=== PATIENT | female | born 1970 | race Hispanic/Latino ===

== ENCOUNTER 2019-08-29 06:24 | Day surgery (SDC) | payer BC ==
[2019-08-27 14:25] LABS: Urine Appearance CLEAR; Urine Bilirubin NEGATIVE (NEG); Urine Blood NEGATIVE (NEG); Urine Color YELLOW; Urine Glucose NEGATIVE (NEG); Urine Protein NEGATIVE (NEG); Urine Specific Gravity <=1.005 (1.005-1.030); Urine Urobilinogen 0.2 mg/dL (0.2-1.0); Urine pH 7.5 (5.0-7.0)
[2019-08-27 14:27] LABS: Absolute Lymphocytes (CBC) 1.2 K/uL (0.7-4.9); Basophils % 0.8 % (0-1.3); Lymphocytes % 21.3 % (15.3-44.8); MPV 8.3 fL (7.6-11.3); RBC Red Blood Cell Count 4.05 M/uL (3.86-4.86)
[2019-08-27 14:44] LABS: Urine Microscopic Reflex NO UMIC
[2019-08-29] MEDS ORDERED: Ringers Lactate 1,000 ML IV ONE (06:38)
[2019-08-29] MEDS ORDERED: CEFAZOLIN/SWI 2gm 2 GM/20 ML SYR ONE (06:38)
[2019-08-29] MEDS ORDERED: NA CHLORIDE 0.9% 100 ML IV ONE (07:12)
[2019-08-29] MEDS ORDERED: NA CHLORIDE 0.9% 1,000 ML ONE (07:12)
[2019-08-29] MEDS ORDERED: VASOPRESSIN 20 UNIT/ML VIAL ONE (07:13)
[2019-08-29] MEDS ORDERED: CEFAZOLIN/SWI 1gm 1 GM/10 ML SYR ONE (07:13)
[2019-08-29] MEDS ORDERED: ROCURONIUM 50 MG/5 ML VIAL IV ONE (07:22)
[2019-08-29] MEDS ORDERED: FENTANYL CITR 100 MCG/2 ML ONE (07:22)
[2019-08-29] MEDS ORDERED: propofoL 200 MG/20 ML VIAL IV ONE (07:22)
[2019-08-29] MEDS ORDERED: dexAMETHasone 10 MG/ML VIAL ONE (07:23)
[2019-08-29] MEDS ORDERED: ONDANSETRON 4 MG/2 ML VIAL ONE (07:23)
[2019-08-29] MEDS ORDERED: LIDOCAINE 2% MPF 5 ML VIAL ONE (07:23)
[2019-08-29] MEDS ORDERED: MIDAZOLAM HCL 2 MG/2 ML INJ ONE (07:23)
[2019-08-29] MEDS ORDERED: NS 0.9% VIAL 20 ML ONE (08:14)
[2019-08-29] MEDS ORDERED: Phenylephrine HCl 10 MG/ML 1 ML VIAL ONE (08:14)
[2019-08-29] MEDS ORDERED: EPHEDRINE SULF 50 MG/ML VIAL ONE (08:54)
[2019-08-29] MEDS ORDERED: KETOROLAC 30 MG/ML INJ ONE (09:49)
[2019-08-29] MEDS ORDERED: HYDROMORPHONE HCL 1 MG/ML INJ ONE ×2 (10:28→10:57)
[2019-08-29] MEDS ORDERED: PROMETHAZINE INJ 25 MG/ML AMP ONE (10:31)
[2019-08-29 10:48] VITALS: O2SAT 100
[2019-08-29] MEDS ORDERED: HYDROCODONE/APAP 5/325 MG TAB ONE (13:26)
[2019-08-29 14:34] VITALS: BP 112/56; TEMP 98.2
--- NOTE | 2019-08-29 20:29 | OP ---
Date of Procedure: 08/29/2019 Surgeon: Sanjuana Romo MD Spinning Frame Changer: Eliane Marcelino. Preoperative Diagnoses: 1.Posterior wall defect perineocele. 2.Mixed incontinence, especially stress urinary incontinence. Postoperative Diagnoses: 1.Rectocele stage II posterior enterocele. 2.Perineal body defect (perineocele). 3.Stress urinary incontinence. 4.Overactive bladder. Anesthesia: General endotracheal. Estimated Blood Loss: 100. Urine Output: Greater than 100. Specimens: None. Complications: None. Drains: None. Findings: -2, -2, -6, 4, moderate, 6, -1, 0, nonapplicable. The perineal body appeared to be separa gill and widened sideways. Description Of Procedure: The patient is a 49-year-old with complaints of stress urinary incontinenc e. She also has overactive bladder symptoms, evaluated clinically and then had urodynamic testing pr cartlon to have both, so she also had complaints of vaginal bulge symptoms and difficulty emptying her b owels, especially towards the end. No other complaints, wanted all the options of physical therapy, Kegel exercises, pessary were all discussed with the patient and Surgery. After understanding the be nefits and risks, bleeding, infection, injury to the bowel, bladder, urethra, fistula, dyspareunia, o ther complications, with groin, pain, the patient was consented for her procedure and brought her to the OR. After informed consent was verified, she was taken back to OR, 2 g of Ancef were given. She was plac ed in a dorsal lithotomy position. Lower abdomen, vulva, vagina, and perineum were prepped and drape d in a sterile fashion. A time-out was done and positioning was checked. Then, a mid urethral area was picked up with 2 Allis clamps. Ram was placed to drain the bladder and clamped with a Cheli an d retracted superiorly. Dilute vasopressin was injected 10 cc in the midline on both sides. The exi t points for the TVT-O were marked of 2 cm superior and 1 cm lateral to the groin fold above the line dropped to the level of the external meatus. The track for the sling was created towards the ipsilateral obturator space hugging the inferior pubi c ramus. Obturator space was entered. Then, the similar dissection on the left side as well. The w ing guide was placed, spike was passed, retrieved at an optimal position staying away from the tendon . Then, similar passes on the opposite side without any problems and mesh was tensioned appropriatel y in the middle and both the plastic sheaths were removed and made sure that the mesh was retention s lightly and it appeared to be slightly tighter, so it was loosened in the middle by pulling gently on the mesh on each side a tiny bit and there was no pillowing effect of the urethra at this point. The vaginal epithelial incision closed with the help of 3-0 Vicryl in a continuous running fashion. Dermabond for skin closure. The ends of the hymen were picked up with 2 Allis clamps. The perineal body was evaluated. On the r ectovaginal exam, there was a posterior defect that was left lateral and distally detached from the p erineal body. The left lateral defect was on the rectovaginal septum in the distal aspect. There wa s a posterior enterocele at the top as well, so plan was to open the posterior wall, reduce the enter ocele. Once the posterior vaginal wall incision was made after vasopressin was injected 20 cc, it wa s taken all the way to the apex. Then, the perineal body remnants were deep transverse perineum at t he scar tissue was dissected and opened up from the epithelium on the perineum and at the level of th e hymen and the vestibule. Then, the posterior vaginal wall was dissected away from the vaginal epit helium and sub-epithelium all the way to the top and rectovaginal septum was dissected away and was p reserved as best as possible. Then, after going to the top and the posterior enterocele was opened u p, there was a 3-0 Monocryl that was placed here in a pursestring fashion to reduce. The defect of t he rectovaginal septum was identified and this was repaired with the help of a 2-0 PDS in a continuou s running fashion all the way down and at the level of the perineal body, a 2-0 Vicryl stitch was sherita kasia, then the PDS was passed through this and it was run back up and tied on the posterior fascia. Then, the perineal body repair was continued on the perineum. Two other interrupted 2-0 Vicryl sutur es were placed for bringing this together. Then, the vaginal epithelium was trimmed appropriately to not cause too much tightening at the same time. It was brought together in a fashion that it would not have too much redundancy, but was not shortened, the length was still 67 cm at the end of the pro cedure. Some laxity left in place. The epithelial closure was with 2-0 Vicryl in a continuous runni ng horizontal mattress fashion and 3-0 Monocryl was run to close the perineal incision all the way do wn the subcutaneous tissue and subcuticular closure all the way to the top and tied inside. Simple s uture placed on the perineum for a better closure of the skin on the surface 1 interrupted suture. O ther than that, the rest of the closure was done as dictated. Then, rectal exam was performed, no ev idence of any trauma to the rectum. Ram removed. Cystoscopy with 17-Bulgarian sheath, 30-degree lens normal saline. Both ureteric orifices with strong jets of urine. No trauma to the bladder. Both s ides were checked. No evidence of any foreign body. The bladder was drained after removing the cyst oscope and Ram was inserted. Packing was placed. The patient was recovered from anesthesia. Inst rument, needle, and sponge counts were correct at the end of the case. Estimated blood loss, 100. P atient tolerated the procedure well. She will be discharged home today after a voiding trial. Tiani ng will be removed tomorrow. This was discussed with the patient and her . She has a followu p in 1 week. If she does not pass a voiding trial today in 2 hours postop, we will remove the Ram and do the trial. If she does not pass, so she will go home with a catheter and that will be removed on Tuesday. RENY/DONOVAN Voice ID: [id number] Report ID: [id number]
== END 2019-08-29 14:30 | disposition home or self-care (01) ==
LOC: OR 06:24
PROVIDERS: ATTEND Obstetrics & Gynecology
PROC: 0JQC0ZZ Repair Pelvic Region Subcutaneous Tissue and Fascia, Open Approach (ICD-10-PCS; 2019-08-29)
PROC: 0WQNXZZ Repair Female Perineum, External Approach (ICD-10-PCS; 2019-08-29)
PROC: 0TSD0ZZ Reposition Urethra, Open Approach (ICD-10-PCS; principal; 2019-08-29 07:30)
DX: N81.6 Rectocele (principal); N81.5 Vaginal enterocele; N81.81 Perineocele; N39.3 Stress incontinence (female) (male); N95.1 Menopausal and female climacteric states; N32.81 Overactive bladder; Z88.6 Allergy status to analgesic agent
CPT/HCPCS: 57288; 57250; 85025; 36415; 86900; 86850; 86901; 81003; J2704; J2550; J2370; J2250; J3010; J1100; J1170; J0690 ×2; J7120; J7030; J2405